=== PATIENT | female | born 1985 | race Caucasian/White ===

== ENCOUNTER → 2016-05-28 | Outpatient (CLI) | payer OTHER ==
--- NOTE | 2016-05-28 08:26 | RAD ---
EXAM: Chest, 2 views. HISTORY: Chest pain. COMPARISON: None. FINDINGS: Frontal and lateral views the chest are obtained. There is no infiltrate, effusion or pneumothorax. The heart is normal in size. IMPRESSION: No acute pulmonary finding.
== END | disposition home or self-care (01) ==
LOC: DXRADRC 08:04
PROVIDERS: ATTEND Physician Assistant Medical
DX: R07.89 Other chest pain (principal)
CPT/HCPCS: 71020

== ENCOUNTER → 2016-06-05 | Outpatient (CLI) | payer BC, OTHER ==
--- NOTE | 2016-06-05 10:23 | CARD ---
APPROVED REPORT EXAM: Two-dimensional and M-mode echocardiogram with Doppler and color Doppler. Other Information Quality : Good INDICATION Chest Pain 2D DIMENSIONS RVDd2.4 (2.9-3.5cm)IVSd1.0 (0.7-1.1cm) Aortic Root(2D)2.5 (2.0-3.7cm)LVDd4.6 (3.9-5.9cm) PWd0.7 (0.7-1.1cm)LVDs2.7 (2.5-4.0cm) FS (%) 30.0 %SV68.0 ml LVEF(%)60.0 (>50%) Aortic Valve AoV Peak Alistair.103.0cm/sAoV VTI15.7cm AO Peak GR.4.2mmHgAO Mean GR.2mmHg SHADIA (VTI)2.56cm2 Mitral Valve MV E Ykwbkozo46.3cm/sMV DECEL JLIX595lc MV A Diexeeri97.7cm/sE/A Ratio1.1 Tricuspid Valve TR P. Tlcbfyht331cc/sRAP [id number] TR Peak Gr.77gyQyOVTL94mmMk LEFT VENTRICLE The left ventricle is normal size. There is normal left ventricular wall thickness. The left ventricu lar systolic function is normal and the ejection fraction is within normal range. The Ejection Fracti on is 55-60%. There is normal LV segmental wall motion. Transmitral Doppler flow pattern is normal fo r age. RIGHT VENTRICLE The right ventricle is normal size. The right ventricular systolic function is normal. ATRIA The left atrium size is normal. The right atrium size is normal. The interatrial septum is intact wit h no evidence for an atrial septal defect or patent foramen ovale as noted on 2-D or Doppler imaging. AORTIC VALVE The aortic valve is normal in structure and function. Doppler and Color Flow revealed no significant aortic regurgitation. There is no significant aortic valvular stenosis. MITRAL VALVE The mitral valve is normal in structure and function. There is no evidence of mitral valve prolapse. There is no mitral valve stenosis. Doppler and Color-flow revealed trace mitral regurgitation. TRICUSPID VALVE The tricuspid valve is normal in structure and function. Doppler and Color Flow revealed physiologica l tricuspid regurgitation. There is no pulmonary hypertension. There is no tricuspid valve stenosis. PULMONIC VALVE Doppler and Color Flow revealed trace pulmonic valvular regurgitation. There is no pulmonic valvular stenosis. GREAT VESSELS The aortic root is normal in size. The ascending aorta is normal in size. The IVC is normal in size a nd collapses >50% with inspiration. PERICARDIAL EFFUSION There is no evidence of significant pericardial effusion. Critical Notification Critical Value: No <Conclusion> The left ventricular systolic function is normal and the ejection fraction is within normal range. Th e Ejection Fraction is 55-60%. There is normal LV segmental wall motion.
== END | disposition home or self-care (01) ==
LOC: ECHO 08:30
PROVIDERS: ATTEND Physician Assistant Medical
DX: I31.3 Pericardial effusion (noninflammatory) (principal); R07.9 Chest pain, unspecified; R11.10 Vomiting, unspecified
CPT/HCPCS: 93306

== ENCOUNTER → 2017-02-21 | Outpatient (CLI) | payer OTHER ==
--- NOTE | 2017-02-21 12:51 | RAD ---
Indication: Abdominal pain. Time of exam 12:36 PM No free air is identified. The bowel gas pattern is nonobstructive. There is moderate stool in the right colon. No abdominal calcifications are seen. Impression: No acute feature detected.
== END | disposition home or self-care (01) ==
LOC: PMG 12:09
PROVIDERS: ATTEND Physician Assistant
DX: R10.30 Lower abdominal pain, unspecified (principal)
CPT/HCPCS: 74020

== ENCOUNTER → 2017-03-19 | Outpatient (CLI) | payer OTHER ==
[2017-03-19 16:56] LABS: BASO % 1 % (0-3); EOS # 0.2 x10^3/uL (0.0-0.7); EOS % 2 % (0-3); HEMATOCRIT 39.1 % (36.0-47.0); HEMOGLOBIN 13.1 g/dL (12.0-15.5); LYMPH # 2.2 x10^3/uL (1.0-4.8); LYMPH % 27 % (24-48); MEAN CORPUSCULAR HEMOGLOBIN 28 pg (25-35); MEAN CORPUSCULAR HGB CONC 33 g/dL (31-37); MEAN CORPUSCULAR VOLUME 83 fL (79-100); MONO # 0.6 x10^3/uL (0.0-1.1); MONO % 8 % (0-9); NEUT # 5.1 x10^3uL (1.8-7.7); NEUT % 63 % (31-73); PLATELET COUNT 264 x10^3/uL (140-400); RED BLOOD COUNT 4.73 x10^6/uL (3.50-5.40); RED CELL DISTRIBUTION WIDTH 14.9 % (11.5-14.5)
[2017-03-19 17:05] LABS: ALBUMIN 4.4 g/dL (3.4-5.0); ALBUMIN/GLOBULIN RATIO 1.4 (1.0-1.7); CALCIUM 8.8 mg/dL (8.5-10.1); CREATININE 0.7 mg/dL (0.6-1.0); GFR 96.4; POTASSIUM 4.3 mmol/L (3.5-5.1); TOTAL BILIRUBIN 0.1 mg/dL (0.2-1.0); TOTAL PROTEIN 7.6 g/dL (6.4-8.2)
[2017-03-20 13:02] LABS: FREE T4 0.95 ng/dL (0.76-1.46); THYROID STIM HORMONE (TSH) 0.766 uIU/mL (0.358-3.740)
== END | disposition home or self-care (01) ==
LOC: PMG 16:10
PROVIDERS: ATTEND Physician Assistant Medical
DX: R05 Cough (principal); R11.10 Vomiting, unspecified; F41.9 Anxiety disorder, unspecified
CPT/HCPCS: 36415; 80053; 84439; 84443; 84481; 85025

== ENCOUNTER 2017-09-03 14:48 | Emergency (ER) | payer OTHER ==
[~2017-09-03] VITALS: Ht 166.4 cm; Wt 71.7 kg
--- NOTE | 2017-09-03 15:50 | RAD ---
Right little toe, 3 views, 09/03/2017: HISTORY: Injury There is chronic appearing deformity at the PIP joint with moderate spurring and widening of the joint. No acute fracture or dislocation is identified. Electronically signed by: Miguel Reyes MD (09/03/2017 3:47 PM) [facility]
--- NOTE | 2017-09-03 16:06 | PHYS DOC ---
Past History Past Medical History: Other Past Surgical History: No Surgical History Alcohol Use: None Drug Use: None Adult General Chief Complaint Chief Complaint: TOE PROBLEM HPI HPI 32-year-old female presents with right fifth toe pain. Patient was walking and hit it on a fish tank. It dislocated laterally. The patient then pulled it back into place. She is concerned whether it is broken or still dislocated. Review of Systems Review of Systems Constitutional: Denies fever or chills [] Eyes: Denies change in visual acuity, redness, or eye pain [] HENT: Denies nasal congestion or sore throat [] Respiratory: Denies cough or shortness of breath [] Cardiovascular: No additional information not addressed in HPI [] GI: Denies abdominal pain, nausea, vomiting, bloody stools or diarrhea [] : Denies dysuria or hematuria [] Musculoskeletal: right 5th toe pain [] Integument: Denies rash or skin lesions [] Neurologic: Denies headache, focal weakness or sensory changes [] Endocrine: Denies polyuria or polydipsia [] All other systems were reviewed and found to be within normal limits, except as documented in this note. Allergies Allergies Allergies Coded Allergies Type Severity Reaction Last Updated Verified No Known Drug Allergies 09/03/17 No Physical Exam Physical Exam Constitutional: Well developed, well nourished, no acute distress, non-toxic appearance. [] HENT: Normocephalic, atraumatic, bilateral external ears normal, oropharynx moist, no oral exudates, nose normal. [] Eyes: PERRLA, EOMI, conjunctiva normal, no discharge. [] Neck: Normal range of motion, no tenderness, supple, no stridor. [] Cardiovascular:Heart rate regular rhythm, no murmur [] Lungs & Thorax: Bilateral breath sounds clear to auscultation [] Abdomen: Bowel sounds normal, soft, no tenderness, no masses, no pulsatile masses. [] Skin: Warm, dry, no erythema, no rash. [] Back: No tenderness, no CVA tenderness. [] Extremities: Tenderness of 5th right toe, no deformity noted [] Neurologic: Alert and oriented X 3, normal motor function, normal sensory function, no focal deficits noted. [] Psychologic: Affect normal, judgement normal, mood normal. [] Current Patient Data Vital Signs Vital Signs Date Time Temp Pulse Resp B/P (MAP) Pulse Ox O2 Delivery O2 Flow Rate FiO2 09/03/17 14:48 98.0 69 18 97 Room Air EKG EKG [] Radiology/Procedures Radiology/Procedures [] Impressions: Right little toe, 3 views, 09/03/2017: HISTORY: Injury There is chronic appearing deformity at the PIP joint with moderate spurring and widening of the joint. No acute fracture or dislocation is identified. Electronically signed by: Miguel Reyes MD (09/03/2017 3:47 PM) [facility] DICTATED AND SIGNED BY: MIGUEL REYES MD DATE: 09/03/17 1538 Course & Med Decision Making Course & Med Decision Making Pertinent Labs and Imaging studies reviewed. (See chart for details) The patient does not have an acute fracture. There is no current dislocation. Patient has chronic issues with that toe as noted in the radiology read. For comfort, she will osmel tape it to her fourth digit. She is stable for discharge. [] Dragon Disclaimer Dragon Disclaimer This electronic medical record was generated, in whole or in part, using a voice recognition dictation system. Departure Departure: Referrals: KAIT CHOWDARY (PCP) GILMAR MCDONOUGH DO Sep 03, 2017 16:06
[2017-09-03 16:42] VITALS: BP 100/68
== END 2017-09-03 16:42 | disposition home or self-care (01) ==
LOC: ER 14:48
DX: M79.674 Pain in right toe(s) (principal); W22.8XXA Striking against or struck by other objects, initial encounter; Y93.01 Activity, walking, marching and hiking; Y99.8 Other external cause status; Y92.89 Other specified places as the place of occurrence of the external cause
CPT/HCPCS: 73660; 99284

== ENCOUNTER 2018-03-22 17:34 | Emergency (ER) | payer OTHER ==
[~2018-03-22] VITALS: Ht 167.6 cm; Wt 77.1 kg
[2018-03-22] MEDS ORDERED: CYCL-331 PO (18:20)
[2018-03-22] MEDS ORDERED: HYDR-1179 PO (18:20)
[2018-03-22] MEDS ORDERED: HYDROcodon/IBUPROFEN 7.5/200MG 1 TAB TABLET PO ONE (18:30)
--- NOTE | 2018-03-22 18:33 | RAD ---
Exam performed:3 views left shoulder Indication: Left shoulder pain and tingling going down the arm, shoulder injury Date of service: 03/22/2018. Comparison: None available Findings :AP radiographs of the shoulder in internal and external rotation as well as a Y-view reveal the osseous structures to be intact and well aligned. The joint space is well-preserved. There is a ovoid calcification lateral to the humeral head'. The articular margins are smooth. Impression: Small ossific fragment along the superolateral aspect of the humeral head, possibly small avulsion or calcific tendinosis . Electronically signed by: Danette Powell MD (03/22/2018 6:28 PM) [facility]
[2018-03-22 18:50] VITALS: BP 119/74
--- NOTE | 2018-03-22 19:39 | ED.ADGEN ---
Past History Past Medical History: No Pertinent History Past Surgical History: No Surgical History Alcohol Use: None Drug Use: None Adult General Chief Complaint Chief Complaint "..I hurt my Lt.shoulder about a month ago... I was lifting a mop bucket.. and my shoulder has never gotten better..still got pain here (deltoid & upper humerus area)..."..." taking some ibuprofen at home and it doesn't seem to help much..." HPI HPI Patient is a 33 year old female [employer] employee who presents with above hx and complaints Lt. shoulder and upper arm tenderness. No initial work report made. Pt. is right-hand dominant. Distal neurovascular intact. Does have sensation in left deltoid area .Pain appears to be located in movements isolated rotator cuff. Patient is able to maintain arm extended with some discomfort. Patient denies any previous injury to left shoulder. Patient normally follows with Dr. Hensley. No history of travel. No history of other trauma. No history of specific ill contacts other than she has at work. Review of Systems Review of Systems Constitutional: Denies fever or chills [] Eyes: Denies change in visual acuity, redness, or eye pain [] HENT: Denies nasal congestion or sore throat [] Respiratory: Denies cough or shortness of breath [] Cardiovascular: No additional information not addressed in HPI [] GI: Denies abdominal pain, nausea, vomiting, bloody stools or diarrhea [] : Denies dysuria or hematuria [] Musculoskeletal: Denies back pain or joint pain []except complaints of left shoulder pain Integument: Denies rash or skin lesions [] Neurologic: Denies headache, focal weakness or sensory changes [] Endocrine: Denies polyuria or polydipsia [] All other systems were reviewed and found to be within normal limits, except as documented in this note. Family History Family History Noncontributory Current Medications Current Medications Current Medications Medications (Trade) Dose Ordered Sig/Ant Start Time Stop Time Status Last Admin Dose Admin Hydrocodone Bitartrate/ Ibuprofen (Vicoprofen 7.5-200) 2 tab 1X ONCE 03/22/18 18:30 03/22/18 18:31 DC 03/22/18 18:18 2 TAB Allergies Allergies Allergies Coded Allergies Type Severity Reaction Last Updated Verified No Known Drug Allergies 03/22/18 No Physical Exam Physical Exam Constitutional: Moderate acute distress, non-toxic appearance. [] HENT: Normocephalic, atraumatic, bilateral external ears normal, oropharynx moist, no oral exudates, nose normal. [] Eyes: PERRLA, EOMI, conjunctiva normal, no discharge. [] Neck: Normal range of motion, no tenderness, supple, no stridor. [] Cardiovascular:Heart rate regular rhythm, no murmur [] Lungs & Thorax: Bilateral breath sounds clear to auscultation [] Abdomen: Bowel sounds normal, soft, no tenderness, no masses, no pulsatile masses. [] Skin: Warm, dry, no erythema, no rash. [] Back: No tenderness, no CVA tenderness. [] Extremities: No tenderness, no cyanosis, no clubbing, ROM intact, no edema. [] Except findings in left shoulder Neurologic: Alert and oriented X 3, normal motor function, normal sensory function, no focal deficits noted. [] Psychologic: Affect anxious, judgement normal, mood normal. [] Current Patient Data Vital Signs Vital Signs Date Time Temp Pulse Resp B/P (MAP) Pulse Ox O2 Delivery O2 Flow Rate FiO2 03/22/18 18:50 74 16 119/74 (89) 97 Room Air 03/22/18 17:34 98.0 EKG EKG [] Radiology/Procedures Radiology/Procedures My interpretation of left shoulder shows no obvious fracture dislocation. There is calcified area in left shoulder joint- possible avulsion or calcified tendon. See formal report when available.[] Course & Med Decision Making Course & Med Decision Making Pertinent Labs and Imaging studies reviewed. (See chart for details). Patient to keep passive range of motion in right shoulder with range of motion at least every 6 hours. Patient take Tylenol and ibuprofen for pain. Patient to follow-up workmen comp. Patient did may take Flexeril and Vicoprofen for marked spasm and discomfort. Must follow-up work comp. Return if any concerns. Patient may need MRI to fully evaluate left shoulder. Suspect rotator cuff injury however could be overuse syndrome or an avulsion fracture or calcified tendon. Must follow-up. [] Final Impression Final Impression 1. Left shoulder pain-suspect rotator cuff injury[] Dragon Disclaimer Dragon Disclaimer This electronic medical record was generated, in whole or in part, using a voice recognition dictation system. Dragon Disclaimer This chart was dictated in whole or in part using Voice Recognition software in a busy, high-work load, and often noisy Emergency Department environment. It may contain unintended and wholly unrecognized errors or omissions. Discharge Summary Visit Information Final Diagnosis Problems Medical Problems: (1) Muscle strain of shoulder region Status: Acute Brief Hospital Course Allergies Allergies Coded Allergies Type Severity Reaction Last Updated Verified No Known Drug Allergies 03/22/18 No Vital Signs Vital Signs Date Time Temp Pulse Resp B/P (MAP) Pulse Ox O2 Delivery O2 Flow Rate FiO2 03/22/18 18:50 74 16 119/74 (89) 97 Room Air 03/22/18 17:34 98.0 Brief Hospital Course Ms. Meade is a 33 old female who presented with left shoulder pain. Suspect rotator cuff injury. Follow-up work comp Discharge Information Condition at Discharge: Stable Disposition/Orders: D/C to Home Dischare Medications Current Medications Hydrocodone Bitartrate/ Ibuprofen (Vicoprofen 7.5-200) 2 tab 1X ONCE PO Last administered on 03/22/18at 18:18; Admin Dose 2 TAB; Start 03/22/18 at 18:30; Stop 03/22/18 at 18:31; Status DC Active Scripts Active Cyclobenzaprine Hcl 10 Mg Tablet 10 Mg PO TIDP PRN Hydrocodone-Ibuprofen 7.5-200 (Hydrocodone/Ibuprofen) 1 Each Tablet 1 Tab PO PRN Q6HRS PRN DENIS MORALES MD Mar 22, 2018 19:39
== END 2018-03-22 19:00 | disposition home or self-care (01) ==
LOC: ER 17:34
DX: S46.912A Strain of unspecified muscle, fascia and tendon at shoulder and upper arm level, left arm, initial encounter (principal); X50.9XXA Other and unspecified overexertion or strenuous movements or postures, initial encounter; Y93.89 Activity, other specified; Y92.89 Other specified places as the place of occurrence of the external cause; Y99.8 Other external cause status
CPT/HCPCS: 73030; 99283

== ENCOUNTER → 2019-06-17 | Outpatient (CLI) | payer OTHER ==
[~2019-06-17] MED LIST: CYCL-331 PO; HYDR-1179 PO
== END | disposition home or self-care (01) ==
LOC: LAB 09:36
PROVIDERS: ATTEND Internal Medicine Cardiovascular Disease
DX: Z20.828 Contact with and (suspected) exposure to other viral communicable diseases (principal)
CPT/HCPCS: 87635

== ENCOUNTER → 2019-09-17 | Outpatient (CLI) | payer OTHER | END | disposition home or self-care (01) | LOC: LAB 12:28 | PROVIDERS: ATTEND Internal Medicine Cardiovascular Disease | DX: Z20.828 Contact with and (suspected) exposure to other viral communicable diseases (principal) | CPT/HCPCS: C9803; U0003; 36415 ==

== ENCOUNTER → 2019-09-23 | Outpatient (CLI) | payer OTHER | END | disposition home or self-care (01) | LOC: LAB 11:37 | PROVIDERS: ATTEND Internal Medicine Cardiovascular Disease | DX: Z20.828 Contact with and (suspected) exposure to other viral communicable diseases (principal) | CPT/HCPCS: C9803; U0003; 36415 ==

== ENCOUNTER → 2019-10-20 | Outpatient (CLI) | payer OTHER | END | disposition home or self-care (01) | LOC: LAB 12:03 | PROVIDERS: ATTEND Internal Medicine Cardiovascular Disease | DX: R51 Headache (principal); R11.2 Nausea with vomiting, unspecified; Z20.828 Contact with and (suspected) exposure to other viral communicable diseases | CPT/HCPCS: U0003-CS ==

== ENCOUNTER 2020-03-30 19:47 | Emergency (ER) | payer OTHER ==
[~2020-03-30] VITALS: Ht 165.1 cm; Wt 77.1 kg
[2020-03-30] MEDS ORDERED: LIDOCAINE/EPI/TETRACAINE TOPICAL GEL 3 ML. TP ONE (20:15)
--- NOTE | 2020-03-30 20:54 | PHYS DOC ---
Past History Past Medical History: Depression Past Surgical History: No Surgical History Alcohol Use: None Drug Use: None Adult General Chief Complaint Chief Complaint: LACERATION/AVULSION HPI HPI Patient is a 35-year-old female who presents with a superficial laceration to the distal tip of the left thumb. Patient states she is not up-to-date on tetanus vaccinations. Denies any other injuries. States she is not on blood thinners. States she was at home slicing potatoes with a potato slicer and caught the edge of her thumb. States it was bleeding, and she did not know she needed stitches or not. Review of Systems Review of Systems Review of systems otherwise unremarkable except noted in HPI Current Medications Current Medications Current Medications Medications (Trade) Dose Ordered Sig/Ant Start Time Stop Time Status Last Admin Dose Admin Cephalexin HCl (Keflex) 500 mg 1X ONCE 03/30/20 20:45 03/30/20 20:46 UNV Diphtheria/ Pertussis/Tetanus Vacc (ADACEL TDap SYRINGE) 0.5 ml ONCE ONCE 03/30/20 20:45 03/30/20 20:46 UNV Lidocaine/ Epinephrine (Let (Snae-Aeimzaj-Sazwp) Gel) 3 ml 1X ONCE 03/30/20 20:15 03/30/20 20:21 DC 03/30/20 20:18 3 ML Allergies Allergies Allergies Coded Allergies Type Severity Reaction Last Updated Verified No Known Drug Allergies 03/22/18 No Physical Exam Physical Exam Constitutional: Well developed, well nourished, no acute distress, non-toxic appearance. [] Skin: Patient with an approximately 1.5 cm superficial laceration on the distal lateral tip of the left thumb Neurologic: Alert and oriented X 3, normal motor function, normal sensory function, no focal deficits noted. [] Psychologic: Affect normal, judgement normal, mood normal. [] Current Patient Data Vital Signs Vital Signs Date Time Temp Pulse Resp B/P (MAP) Pulse Ox O2 Delivery O2 Flow Rate FiO2 03/30/20 19:55 99.2 107 20 148/72 (97) 98 Room Air EKG EKG [] Radiology/Procedures Radiology/Procedures [] Heart Score Risk Factors: Risk Factors: DM, Current or recent (<one month) smoker, HTN, HLP, family history of CAD, obesity. Risk Scores: Risk Factors: DM, Current or recent (<one month) smoker, HTN, HLP, family history of CAD, obesity. Course & Med Decision Making Course & Med Decision Making Patient is a 35-year-old female who presents with a superficial thumb laceration Vital signs not concerning. Physical exam noted above. Laceration is supe rficial, and bleeding controlled. Placed LET for topical anesthesia before lavage. No need for suture repair. Dermabond repair. Updated tetanus. Gave wound care instructions. Advised to follow-up with primary care as needed. Advised to come back to ED with new or concerning symptoms. Patient grateful, verbalized understanding and agreed with plan of discharge. [] Dragon Disclaimer Dragon Disclaimer This electronic medical record was generated, in whole or in part, using a voice recognition dictation system. Departure Departure: Impression: Primary Impression: Thumb laceration Disposition: 01 DC HOME SELF CARE/HOMELESS Condition: GOOD Referrals: JAYDEN GILLIS MD (PCP) Patient Instructions: Fingertip Laceration Additional Instructions: Please read all the attached information. Please keep clean dry and bandaged as noted. Please use Tylenol and ibuprofen as needed for pain control. Please take your antibiotics as prescribed. Please follow-up with your primary care physician as needed. Please return to the ED with any new or concerning symptoms as discussed. Scripts Cephalexin (CEPHALEXIN) 500 Mg Capsule 1 CAP PO TID for laceration for 3 Days, #9 CAP Prov: GAETANO CUMMINGS MD 03/30/20 GAETANO CUMMINGS MD Mar 30, 2020 20:54
[2020-03-30] MEDS ORDERED: CEPHALEXIN 250 MG CAPSULE PO ONE (21:00)
[2020-03-30] MEDS ORDERED: DIPH,PERTUSS(ACELL),TET VAC/PF 0.5 ML SYRINGE. VAX IM ONE (21:00)
[2020-03-30] MEDS ORDERED: CEPH500C PO (21:14)
[2020-03-30 21:20] VITALS: BP 121/71
== END 2020-03-30 21:20 | disposition home or self-care (01) ==
LOC: ER 19:47
DX: S61.012A Laceration without foreign body of left thumb without damage to nail, initial encounter (principal); F32.9 Major depressive disorder, single episode, unspecified; W26.8XXA Contact with other sharp object(s), not elsewhere classified, initial encounter; Y93.89 Activity, other specified; Y92.89 Other specified places as the place of occurrence of the external cause; Y99.8 Other external cause status
CPT/HCPCS: 12001; 90471; 90715; 99283